=== PATIENT | male | born 1960 | race Caucasian/White ===

== ENCOUNTER 2019-10-05 08:36 | Emergency (ER) | payer OTHER ==
[~2019-10-05] VITALS: Ht 167.6 cm; Wt 82.1 kg
[2019-10-05] MEDS ORDERED: ADVIL200 MG PO (08:48)
[2019-10-05] MEDS ORDERED: ASPIR 8181 MG PO (16:21)
[2019-10-05] MEDS ORDERED: LIPITOR10 MG PO (16:21)
--- NOTE | 2019-10-05 17:52 | EKG ---
[facility] [address] [facility] [place], [place] [address] Signed Normal sinus rhythm Rightward axis T wave abnormality, consider inferior ischemia Abnormal ECG No previous ECGs available Confirmed by TISH HICKMAN DO ([id number]) on 10/05/2019 5:52:49 PM Electronically Signed By: TISH HICKMAN DO 10/05/19 1752 PATIENT NAME: TORI CHOPRA Electrocardiogram DATE OF : 64 PHYSICIAN: TISH HICKMAN DO REPORT #: [id number] REPORT IS CONFIDENTIAL AND NOT TO BE RELEASED WITHOUT AUTHORIZATION
== END 2019-10-05 16:57 | disposition home or self-care (01) ==
LOC: ED 08:36
DX: I74.3 Embolism and thrombosis of arteries of the lower extremities (principal); I73.9 Peripheral vascular disease, unspecified; E11.9 Type 2 diabetes mellitus without complications; F17.200 Nicotine dependence, unspecified, uncomplicated
CPT/HCPCS: 73706; 80048; 80061; 83735; 85025; 85610; 93005; 93010; 96360; 99284-25; 99406; J7030; Q9967

== ENCOUNTER 2024-12-21 06:45 | Day surgery (SDC) | payer OTHER ==
[2024-12-19 09:27] VITALS: BP 124/79
[~2024-12-21] VITALS: Ht 177.8 cm; Wt 84.0 kg
[~2024-12-21 06:45] MED LIST: ADVIL200 MG PO; ASPIR 8181 MG PO; CLOPIDOGREL75 MG PO; DAPAGLIFLOZIN5 MG PO; LIPITOR10 MG PO; LIPITOR20 MG PO; LISINOPRIL20 MG PO; METFORMIN HCL1000 M1 PO
[2024-12-21] MEDS ORDERED: LIDOCAINE HCL 1% 5 ML SDV INJ ONE (07:00)
[2024-12-21] MEDS ORDERED: IBLOOD GLUCOSE TEST STRIP 1 EA TEST VI PRN (07:00)
[2024-12-21] MEDS ORDERED: LACTATED RINGER'S 1,000 ML IV SCH (07:00)
[2024-12-21 07:01] VITALS: BP 131/72
--- NOTE | 2024-12-21 08:10 | NUR ---
PT UP TO RESTROOM. PT GAIT IS STEADY AND HANDLING IV POLE WITHOUT DIFFICULTY. PT BACK TO ROOM AND STATES NO NEED OR QUESTIONS AT THIS TIME. CALL LIGHT WITHIN REACH.
[2024-12-21] MEDS ORDERED: propofoL 200 MG/20 ML VIAL ONE (08:13)
[2024-12-21] MEDS ORDERED: LIDOCAINE HCL 2% 5 ML SDV ONE (08:13)
--- NOTE | 2024-12-21 08:42 | NUR ---
PT BACK TO ROOM FROM USING RESTROOM. WARM BLANKET OFFERED, PT HAS DECLINED. PT SITTING IN BED WATCHING TV. LET PT KNOW THAT SURGERY PRIOR HAS ENDED AND ANESTHESIA WILL BE IN TO TALK WITH HIM SHORTLY. PT STATES VERBAL UNDERSTANDING. PT STATES NO FURTHER NEEDS OR QUESTIONS AT THIS TIME.
--- NOTE | 2024-12-21 09:03 | NUR ---
VISITED DURING SPIRITUAL CARE ROUNDS. PT IN OVERALL GOOD SPIRITS, NO IMMEDIATE NEEDS. OVERNIGHT CASHIER PROVIDED SUPPORTIVE PRESENCE, HOSPITALITY, PRAYER, FACILITATED INTERACTION WITH THERAPY ANIMAL. PT EXPRESSED GRATITUDE.
--- NOTE | 2024-12-21 09:59 | NUR ---
12/21/24 0959 [place] 0908-PATIENT ARRIVED TO PACU ON 2L NC RR EVEN. PATIENT LAYING LEFT LATERAL REACTIVE TO VERBAL STIMULI ORIENTED TO PACU. DENIES PAIN OR NAUSE.ABDOMEN SOFT. IVF INFUSING. PATIENT DOZES BACK TO SLEEP.
[2024-12-21 10:26] VITALS: BP 137/77
--- NOTE | 2024-12-22 06:23 | OR ---
[facility] [address] [place], [place] [address] Signed DATE OF OPERATION: 12/21/2024 SURGEON: Geena Haji MD PREOPERATIVE DIAGNOSES: 1. Maternal aunt with colon cancer in her 60s. 2. Redundant colon. 3. Diverticulosis. POSTOPERATIVE DIAGNOSES: 1. A 3 mm polyps x3 at 8 cm in the rectum. 2. A 4 mm polyp at 20 cm in sigmoid colon. 3. A 5 mm polyp at 55 cm in left colon. 4. A 5 mm polyp at 45 cm in left colon. 5. A 5 mm polyp at 18 cm in sigmoid colon. 6. Minimal sigmoid diverticulosis. 7. Ipgmhru-ff-daoyfrbq internal hemorrhoids. 8. Redundant colon. PROCEDURE: Colonoscopy with hot biopsy. ESTIMATED BLOOD LOSS: None. INDICATIONS: Tori is a 64-year-old gentleman asked to see me for followup colonoscopy. He said he really has no lower GI complaints. I had helped him with a colonoscopy back in 2010 at age of 51. Since then, we learned that his maternal aunt had colon cancer in her 60s. Back in 2010, he had a change in bowel habits with constipation and decrease in caliber of stool along with some nausea and pain in the left upper quadrant. We did find that he has a redundant left colon along with some diverticulosis. At that time, we have asked him to follow up in 10 years. In the office, I gave him a pamphlet on colonoscopy. He recalls the nature of the test. There is risk including, but not limited to gas bloating, crampy abdominal pain, bleeding, perforation requiring surgery, and missed diagnosis. We also reviewed the written instructions for a bowel prep line by line. We had him stay on the aspirin for the procedure given his rather significant peripheral arterial disease and stenting. He has been off the Plavix for over a year. We did ask for monitored anesthesia care given his complex history and diabetes neuropathy and so forth. He had expressed understanding and wished to proceed. Electronically Signed By: GEENA HAJI MD 12/22/24 0623 PATIENT NAME: TORI CHOPRA OPERATIVE REPORT DATE OF : 64 REPORT #: [id number] PHYSICIAN: GEENA HAJI MD PCP: ASHLEY ZUÑIGA PA-C REPORT IS CONFIDENTIAL AND NOT TO BE RELEASED WITHOUT AUTHORIZATION [facility] [address] [place], [place] [address] Signed PROCEDURE NOTE: Tori was taken into our endoscopy suite and placed in the left lateral decubitus position. He was given monitored anesthesia care with propofol infusion per our nurse electrician aircraft. A digital rectal exam was performed, not much in the way of any external hemorrhoids. Good sphincter tone. There were no masses. The adult colonoscope was introduced and advanced all around into the cecum under direct visualization of camera. It took extra-propofol and abdominal compression to get the scope into the cecum itself. We had to pull the scope in and out multiple times. Finally, we made it right into the cecum. His prep was good. He probably could use a little more polyethylene glycol in the future. We could easily see the appendiceal orifice and ileocecal valve. The scope was then slowly withdrawn. We took out the above polyps easily with the help of hot biopsy forceps. He does have diverticula in the sigmoid colon. They were rsuclfk-ut-ovejhqvx in size, ldqnirg-aa-wqvskkna in number and scattered about. Once in the rectum, the scope was retroflexed, he does have abowbjt-md-clnqyypv internal hemorrhoid columns. He does have a redundant left and sigmoid colon. After this, the gas was suctioned out. The colonoscope removed. Tori tolerated the procedure quite well. RECOMMENDATIONS: I will see Tori back in my office in 1-2 weeks to review his biopsy results. I suspect he will be on the five-year plan mostly due to his maternal aunt having colon cancer in her 60s. He should always have monitored anesthesia care given the difficulty of his endoscopy with respect to the redundant colon. He could always increase the polyethylene glycol up to 3/4th of a gallon or even a full gallon along with the Dulcolax tablets. Geena Haji MD ALB/MODL /[id number] cc: Geena Haji MD Patient Chart Electronically Signed By: GEENA HAJI MD 12/22/24 0623 PATIENT NAME: TORI CHOPRA OPERATIVE REPORT DATE OF : 64 REPORT #: [id number] PHYSICIAN: GEENA HAJI MD PCP: ASHLEY ZUÑIGA PA-C REPORT IS CONFIDENTIAL AND NOT TO BE RELEASED WITHOUT AUTHORIZATION [address] [address] Signed Ashley Zuñiga PA-C Copies: GEENA HAJI MD, CHLOE K PA-C ~ Electronically Signed By: GEENA HAJI MD 12/22/24 0623 PATIENT NAME: TORI CHOPRA OPERATIVE REPORT DATE OF : 64 REPORT #: [id number] PHYSICIAN: GEENA HAJI MD PCP: ASHLEY ZUÑIGA PA-C REPORT IS CONFIDENTIAL AND NOT TO BE RELEASED WITHOUT AUTHORIZATION
--- NOTE | 2024-12-23 08:38 | PATH ---
[facility] [address] [facility] [place] [address] Signed SPECIMEN(S): A COLON POLYP, 8 CM SPECIMEN(S): B SIGMOID POLYP, 20 CM SPECIMEN(S): C DESCENDING POLYP, 55 CM SPECIMEN(S): D DESCENDING POLYP, 45 CM SPECIMEN(S): E DISTAL SIGMOID POLYP, 18 CM SPECIMEN SOURCE: A. COLON POLYP, 8 CM B. SIGMOID POLYP, 20 CM C. DESCENDING POLYP, 55 CM D. DESCENDING POLYP, 45 CM E. DISTAL SIGMOID POLYP, 18 CM CLINICAL HISTORY: Colon cancer/redundant colon. Internal hemorrhoids, diverticulosis, multiple polyps. FINAL PATHOLOGIC DIAGNOSIS: A. Colon, 8 cm, polypectomy: - Hyperplastic polyp B. Colon, sigmoid at 20 cm, polypectomy: - Hyperplastic polyp C. Colon, descending at 55 cm, polypectomy: - Colonic mucosa with no significant pathologic changes D. Colon, descending at 45 cm, polypectomy: - Colonic mucosa with no significant pathologic changes E. Colon, distal sigmoid at 18 cm, polypectomy: - Colonic mucosa with no significant pathologic changes BRP MICROSCOPIC EXAMINATION: Histologic sections of all submitted blocks are examined by light microscopy. These findings, together with the gross examination, support the pathologic diagnosis. GROSS DESCRIPTION: A. The specimen, labeled and designated "Ronal, colon polyp at 8 cm," is received in formalin and consists of three chu soft tissue fragments, ranging from 0.2 cm. Entirely submitted in (A1). B. The specimen, labeled and designated "[place], sigmoid colon polyp at 20 cm," is received in formalin and consists of one chu soft tissue fragment, 0.2 PATIENT NAME: TORI CHOPRA PATHOLOGY DATE OF : 64 REPORT #: [id number] PHYSICIAN: ARLEEN BARKER PCP: FRANCISCO HOOVER PA-C REPORT IS CONFIDENTIAL AND NOT TO BE RELEASED WITHOUT AUTHORIZATION [facility] [address] [place], [place] [address] Signed cm. Entirely submitted in (B1). C. The specimen, labeled and designated "Ronal, descending colon polyp at 55 cm," is received in formalin and consists of one chu soft tissue fragment, 0.1 cm. Entirely submitted in (C1). D. The specimen, labeled and designated "Ronal, descending colon polyp at 45 cm," is received in formalin and consists of one chu soft tissue fragment, 0.2 cm. Entirely submitted in (D1). E. The specimen, labeled and designated "Ronal, distal sigmoid polyp at 18 cm," is received in formalin and consists of one chu soft tissue fragment, 0.2 cm. Entirely submitted in (E1). JS (under the direct supervision of a pathologist) The Gross Description was prepared using a voice recognition system. The report was reviewed for accuracy; however, sound-alike word errors, addition and/or deletions may occur. If there is any question about this report, please contact Client Services. ADDITIONAL NOTES: Immunohistochemical and/or in situ hybridization studies if performed in this case included appropriate positive controls that reacted as expected. This test was developed and its performance characteristics determined by [facility]. It has not been cleared or approved by the U.S. Food and Drug Administration. The FDA has determined that such clearance or approval is not necessary. This test is used for clinical purposes. It should not be regarded as investigational or for research. [facility] is certified under the Clinical Laboratory Improvement Amendments of 1988 (CLIA) as qualified to perform high complexity clinical laboratory testing. PERFORMING LABORATORY: Technical component was performed by [facility], [address] [place] [id number] (CLIA# [id number]). Professional interpretation was performed by [facility] - [facility], [address] [place] [id number] (CLIA#: [id number]). Diagnostician: Grant Navarro MD Pathologist Electronically Signed 12/23/2024 Copies: PATIENT NAME: TORI CHOPRA PATHOLOGY DATE OF : 64 REPORT #: [id number] PHYSICIAN: ARLEEN BARKER PCP: FRANCISCO HOOVER PA-C REPORT IS CONFIDENTIAL AND NOT TO BE RELEASED WITHOUT AUTHORIZATION [address] [place], [place] [address] Signed ~ PATIENT NAME: TORI CHOPRA PATHOLOGY DATE OF : 64 REPORT #: [id number] PHYSICIAN: ARLEEN BARKER PCP: FRANCISCO HOOVER PA-C REPORT IS CONFIDENTIAL AND NOT TO BE RELEASED WITHOUT AUTHORIZATION
== END 2024-12-21 10:35 | disposition home or self-care (01) ==
LOC: DS 06:45
PROVIDERS: ATTEND Colon & Rectal Surgery
PROC: 0DBN8ZZ Excision of Sigmoid Colon, Via Natural or Artificial Opening Endoscopic (ICD-10-PCS; 2024-12-21)
PROC: 0DBP8ZZ Excision of Rectum, Via Natural or Artificial Opening Endoscopic (ICD-10-PCS; 2024-12-21)
PROC: 0DBG8ZZ Excision of Left Large Intestine, Via Natural or Artificial Opening Endoscopic (ICD-10-PCS; principal; 2024-12-21 09:30)
DX: K63.5 Polyp of colon (principal); K62.1 Rectal polyp; K63.89 Other specified diseases of intestine; K57.30 Diverticulosis of large intestine without perforation or abscess without bleeding; K64.8 Other hemorrhoids; I10 Essential (primary) hypertension; E11.40 Type 2 diabetes mellitus with diabetic neuropathy, unspecified; E78.5 Hyperlipidemia, unspecified; F12.10 Cannabis abuse, uncomplicated; E11.51 Type 2 diabetes mellitus with diabetic peripheral angiopathy without gangrene; Z79.84 Long term (current) use of oral hypoglycemic drugs; Z80.0 Family history of malignant neoplasm of digestive organs
CPT/HCPCS: 00811; J2003; J2704; J7121